=== PATIENT | male | born 1980 | race Caucasian/White ===

== ENCOUNTER 2018-07-21 14:20 | Inpatient (IN) ==
[~2018-07-21 14:20] MED LIST: THIAMINE 100 MG TABLET PO SCH
[2018-07-21] MEDS ORDERED: 0.9 % SODIUM CHLORIDE 1,000 ML IV ONE ×2 (14:31→17:24)
--- NOTE | 2018-07-21 14:42 | Emergency Department Note ---
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 He did have a liver biopsy that was suspicious. 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 I got that information from Valerie Allison. She is a nurse practitioner with Dr. Bryant. Around Thanksgiving time he developed some ascites and that prompted the evaluation. He came in last night and had quite a bit of ascites and Dr. Islas did a paracentesis of 1500 cc of fluid. He then returned a few hours later with abdominal pain and was found to have a abdominal wall muscle hematoma. This was in the same area that the paracentesis was done. Patient is having a lot of pain in that area now. As far as I can tell the patient did not get any albumin last night. His blood pressure was 64 systolic sitting but 113 supine. He returned to the emergency room this afternoon because of continuing pain in the area of the paracentesis was performed. - Related Data Home Medications Medication Instructions Recorded Confirmed Omeprazole [PriLOSEC] 40 mg PO ACB 04/23/18 05/21/18 Methylphenidate HCl [Concerta] 36 mg PO DAILY 05/21/18 05/21/18 clonazePAM [KlonoPIN] 0.5 mg PO TID 05/21/18 05/21/18 Previous Rx's Medication Instructions Recorded oxyCODONE/APAP [Percocet 5-325 mg] 1 tab PO Q4H PRN #21 tab 07/21/18 Allergies Allergy/AdvReac Type Severity Reaction Status Date / Time metoclopramide [From Reglan] AdvReac Mild Anxiety Verified 07/21/18 14:26 ondansetron [From Zofran] AdvReac Mild Anxiety Verified 07/21/18 14:26 Review of Systems All systems ED: reviewed and negative except as stated. Past Medical History - Past Medical History Medical history: Reports: kidney stones, liver disease (Cirrhosis with ascites due to alcohol) Surgical history ED: Reports: orthopedic, other (Foot), other (Liver biopsy) - Social History smoking status: Former smoker Alcohol use: Reports: Occasionally (He states he drank 3 drinks a day to 4 times a week but has quit since March) Drug use: Reports: unknown Physical Exam Limitations: no limitations General appearance: alert, cachectic Head: atraumatic, normocephalic Eye: Present: normal appearance ENT: normal exam Neck: Present: normal inspection Chest: Present: normal inspection Respiratory: Present: normal lung sounds bilaterally Cardiovascular: Present: regular rate, normal rhythm, normal heart sounds Abdominal: Present: soft, distention, tenderness. Absent: guarding, rebound, rigidity Neurological: Present: alert Psychiatric: Present: normal affect Skin: Present: warm, cool, dry Course Vital Signs Temperature 97.1 F 07/21/18 14:21 Pulse Rate 145 H 07/21/18 14:21 Respiratory Rate 24 H 07/21/18 14:21 Blood Pressure 64/40 07/21/18 14:21 Pulse Oximetry (%) 96 07/21/18 14:21 Temperature 97.1 F 07/21/18 14:21 Pulse Rate 131 H 07/21/18 18:16 Respiratory Rate 22 07/21/18 18:16 Blood Pressure 122/74 07/21/18 18:16 Pulse Oximetry (%) 98 07/21/18 18:16 Medical Decision Making - [facility] Narrative Medical decision making narrative: Chest x-ray is unremarkable, urine was negative and the ascitic fluid last night only had 100 cells in it. Patient was started on hydration and his blood pressure did come up to 113 if he was in the supine position. His lactic acid was 12 which is concerning. His pro time has also risen from 13-23 in the last 6 weeks. I discussed this case with Valerie Allison nurse practitioner for Dr. Bryant who follows the patient. She did call the unit of transplant dean of instruction who said that the patient is not a candidate for transplant. She also talked with Dr. Finn and Dr. Lindsay who are on board with following the patient here. Dr. Vargas was then contacted and will admit the patient to the hospital. We did do blood cultures and started the patient on Levaquin vancomycin and Zosyn. I also gave him some albumin since he did not get any last night. - Lab Data Lab results reviewed: Yes I reviewed the patient's lab results. Result diagrams: 07/21/18 14:31 07/21/18 14:31 Lab Results 07/21/18 07/21/18 07/21/18 Range/Units 14:31 14:31 14:31 WBC 11.6 H (4.5-11.0) K/mcL RBC 2.73 L (4.50-5.90) M/mcL Hgb 9.1 L (13.5-16.5) g/dL Hct 27.3 L (41.0-55.0) % MCV 99.9 (80.0-100.0) fL MCH 33.3 (26.0-34.0) pg MCHC 33.4 (31.0-36.0) g/dL RDW 15.4 H (11.5-14.5) % Plt Count 64 L (140-440) K/mcL MPV 8.2 (7.4-10.4) fL Gran % 85.7 H (38.0-78.0) % Lymph % (Auto) 9.4 L (15.5-49.0) % [place] % (Auto) 4.6 (1.0-12.0) % Eos % (Auto) 0.2 (0.0-7.0) % Baso % (Auto) 0.1 (0.0-2.0) % Gran # 9.9 H (1.8-8.0) K/mcL Lymph # (Auto) 1.1 L (1.5-4.8) K/mcL [place] # (Auto) 0.5 (0.1-0.9) K/mcL Eos # (Auto) 0 (0.0-0.7) K/mcL Baso # (Auto) 0 (0.0-0.3) K/mcL PT 23.3 H (11.9-14.5) sec INR 2.1 H (0.9-1.1) VBG Lactic Acid (0.5-2.0) mmol/L Sodium 131 L (133-145) mmol/L Potassium 4.0 (3.3-5.1) mmol/L Chloride 88 L (96-108) mmol/L Carbon Dioxide 21 L (22-30) mmol/L Anion Gap 22.0 H (8-16) BUN 10 (6-20) mg/dl Creatinine 1.0 (0.7-1.2) mg/dl GFR Calculation 95 Glucose 187 H (70-105) mg/dL Calcium 7.4 L (8.6-10.4) mg/dl Total Bilirubin 3.6 H (0.0-1.0) mg/dL AST 374 H (0-37) U/l ALT 45 H (0-40) U/l Alkaline Phosphatase 240 H (39-117) U/L Total Protein 6.1 (5.9-8.4) gm/dL Albumin 2.0 L (3.2-5.2) gm/dL Globulin 4.1 H (2.2-3.7) gm/dL Albumin/Globulin Ratio 0.5 L (1.0-2.3) Acetaminophen ug/mL Ethyl Alcohol (<0.010) gm/dl 07/21/18 07/21/18 07/21/18 Range/Units 14:36 14:36 14:36 WBC (4.5-11.0) K/mcL RBC (4.50-5.90) M/mcL Hgb (13.5-16.5) g/dL Hct (41.0-55.0) % MCV (80.0-100.0) fL MCH (26.0-34.0) pg MCHC (31.0-36.0) g/dL RDW (11.5-14.5) % Plt Count (140-440) K/mcL MPV (7.4-10.4) fL Gran % (38.0-78.0) % Lymph % (Auto) (15.5-49.0) % [place] % (Auto) (1.0-12.0) % Eos % (Auto) (0.0-7.0) % Baso % (Auto) (0.0-2.0) % Gran # (1.8-8.0) K/mcL Lymph # (Auto) (1.5-4.8) K/mcL [place] # (Auto) (0.1-0.9) K/mcL Eos # (Auto) (0.0-0.7) K/mcL Baso # (Auto) (0.0-0.3) K/mcL PT (11.9-14.5) sec INR (0.9-1.1) VBG Lactic Acid 12.1 H* (0.5-2.0) mmol/L Sodium (133-145) mmol/L Potassium (3.3-5.1) mmol/L Chloride (96-108) mmol/L Carbon Dioxide (22-30) mmol/L Anion Gap (8-16) BUN (6-20) mg/dl Creatinine (0.7-1.2) mg/dl GFR Calculation Glucose (70-105) mg/dL Calcium (8.6-10.4) mg/dl Total Bilirubin (0.0-1.0) mg/dL AST (0-37) U/l ALT (0-40) U/l Alkaline Phosphatase (39-117) U/L Total Protein (5.9-8.4) gm/dL Albumin (3.2-5.2) gm/dL Globulin (2.2-3.7) gm/dL Albumin/Globulin Ratio (1.0-2.3) Acetaminophen 8.7 ug/mL Ethyl Alcohol 0.078 H (<0.010) gm/dl - Radiology Data Radiology results reviewed: Yes I reviewed the patient's radiology results. Disposition Pt seen by ART EDUCATOR/PA only: No Clinical Impression: Liver failure Liver cirrhosis Qualifiers: Hepatic cirrhosis type: unspecified hepatic cirrhosis Ascites presence: with ascites Qualified Code(s): K74.60 - Unspecified cirrhosis of liver Abdominal wall hematoma Qualifiers: Encounter type: initial encounter Qualified Code(s): S30.1XXA - Contusion of abdominal wall, initial encounter Disposition: Xfer As Inpt ([facility]) Condition: Fair Referrals: Tamika Romano ARNP [Primary Care Provider] - Time of Disposition: 18:31
[2018-07-21] MEDS ORDERED: ALBUMIN HUMAN 12.5 GM/50 ML BAG IV ONE (14:53)
[2018-07-21 15:14] LABS: Basophils # (Auto) 0 K/mcL (0.0-0.3); Basophils % (Auto) 0.1 % (0.0-2.0); Eosinophils # (Auto) 0 K/mcL (0.0-0.7); Eosinophils % (Auto) 0.2 % (0.0-7.0); Granulocytes % (Auto) 85.7 % (38.0-78.0); Lymphocytes # (Auto) 1.1 K/mcL (1.5-4.8); Lymphocytes % (Auto) 9.4 % (15.5-49.0); Mean Cell Volume 99.9 fL (80.0-100.0); Mean Corpuscular HGB Conc 33.4 g/dL (31.0-36.0); Monocytes # (Auto) 0.5 K/mcL (0.1-0.9); Monocytes % (Auto) 4.6 % (1.0-12.0); Platelet Count 64 K/mcL (140-440); RBC 2.73 M/mcL (4.50-5.90); Red Cell Distribution Width 15.4 % (11.5-14.5)
[2018-07-21 15:33] LABS: ALT/SGPT 45 U/l (0-40); Albumin/Globulin Ratio 0.5 (1.0-2.3); Alkaline Phosphatase 240 U/L (39-117); Blood Urea Nitrogen 10 mg/dl (6-20)
[2018-07-21] MEDS ORDERED: LEVOFLOXACIN 750 MG/150 ML BAG IV ONE (15:37)
[2018-07-21] MEDS ORDERED: PIPERACILLIN SODIUM/TAZOBACTAM 3.375 GM in DEXTROSE 5% IN WATER 50 ML IV ONE (15:37)
[2018-07-21] MEDS ORDERED: VANCOMYCIN 1,000 MG in 0.9 % SODIUM CHLORIDE 250 ML IV SCH (15:45)
--- NOTE | 2018-07-21 15:54 | XRay Report ---
CLINICAL INFORMATION: Elevated lactic acid COMPARISON: None. FINDINGS: Cardiomediastinal silhouette and pulmonary vessels are normal for technique. Minor airspace in the right base likely atelectasis. No effusions IMPRESSION: Mild right basilar atelectasis Interpreted and Authenticated by: Jay Ott 07/21/18
[2018-07-21] MEDS: HYDROmorphone 2 MG/ML VIAL IV PRN ×5 (16:05→23:05)
[2018-07-21] MEDS ORDERED: clonazePAM 1 MG TABLET PO ONE (17:47)
--- NOTE | 2018-07-21 18:23 | Internal Medicine Consult Note ---
Medical - CN: HPI - Data of Consult Patient: known to practice within the last 3 years Consult date: 07/21/18 Primary Care Provider: Tamika Romano - Consult Narrative Reason for consult: Liver failure History of present illness: Mr. Benito is a 37 year old M whom I know well having recently seen him for alcoholic liver disease who presented to ER yesterday for ascites. He initially presented for outpatient consultation in March for evaluation of a mysterious acute hepatitis, adamantly denying any alcohol or recreational drug use. Extensive work up was undertaken, with liver biopsy ultimately revealing ADLER with grade 3-4 fibrosis. Given his repeated denials of alcohol use, he was prescribed an empiric trial of metronidazole as bacterial overgrowth has been associated in ADLER in bariatric surgery patients. We also recommended he discontinue suboxone as this has rarely been associated with drug induced liver injury. However, he had no improvement and was thus referred to [facility] for consideration of transplant. Phosphatidylethanol (PETH) was grossly abnormal at 432 (a level of 20 suggests alcohol consumption of greater than 4 beverages daily in the last 2 weeks); therefore, he is not a transplant candidate (this was confirmed again today with Dr. Oseguera at ). When confronted with this evidence, he continues to deny any alcohol use. His mother pulled me aside later and told me she has followed him to the liquor store and found liquor bottles in his garbage, but he also denies alcohol use when she confronted him. He tells me he is agitated because he ran out of his clonazepam. He admits to using tylenol three times weekly. Paracentesis was performed yesterday and no evidence of SBP was seen. He developed an abdominal wall hematoma and returns today for pain control. His tests of synthetic liver function continue to decline and the decision was made to admit the patient, co-managed with hospitalist Dr. Vargas with on-call gastroenterology providing endoscopy support as needed. CC: - Constitutional Constitutional: Present: daytime sleepiness, fatigue, lethargy, malaise, weight gain. Absent: fever(s) - Respiratory Respiratory: Present: dyspnea - Gastrointestinal Gastrointestinal: Present: abdominal pain, bloating Medical - CN: PMH Medical history: chronic back pain treated with suboxone and clonazepam. ADHD. Hypertension. Surgical history: Left foot surgery 2012 Pertinent family history: Father has heart disease. Social history: from . Has 2 daughters. 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 Smoking status: Never smoker Medical - CN: Meds Home Medications Medication Instructions Recorded Confirmed Type Omeprazole [PriLOSEC] 40 mg PO ACB 04/23/18 05/21/18 History Methylphenidate HCl [Concerta] 36 mg PO DAILY 05/21/18 05/21/18 History clonazePAM [KlonoPIN] 0.5 mg PO TID 05/21/18 05/21/18 History oxyCODONE/APAP [Percocet 5-325 mg] 1 tab PO Q4H PRN #21 tab 07/21/18 Rx Allergies Allergy/AdvReac Type Severity Reaction Status Date / Time metoclopramide [From Reglan] AdvReac Mild Anxiety Verified 07/21/18 14:26 ondansetron [From Zofran] AdvReac Mild Anxiety Verified 07/21/18 14:26 Medical - CN: Exam - Constitutional Vitals: Temp Pulse Resp BP Pulse Ox 97.1 F 131 H 22 122/74 98 07/21/18 14:21 07/21/18 18:16 07/21/18 18:16 07/21/18 18:16 07/21/18 18:16 General appearance: average body habitus, mild distress - Head Head exam: Present: atraumatic, normal inspection, normocephalic - Neck Neck exam: Present: normal inspection. Absent: lymphadenopathy - Respiratory Respiratory exam: Present: normal respiratory exam, CTAB - Cardiovascular Cardiovascular exam: Present: tachycardia. Absent: gallop, rubs, systolic murmur - GI/Abdominal GI/Abdominal exam: Present: normal bowel sounds Additional comments: ascites, unable to palpate liver due to pain from abdominal wall hematoma, but measured 25cm on CT today. Dressing from paracentesis dry and intact. - Extremities Exam Extremities exam: Present: pedal edema - Neurological Exam Neurological exam: Present: alert Additional comments: No asterixis - Psychiatric Psychiatric exam: Present: anxious - Skin Skin exam: Present: dry, pallor, warm Medical - CN: Result - Labs CBC & Chem 7: 07/21/18 14:31 07/21/18 14:31 Labs: Short CBC 07/21/18 Range/Units 14:31 WBC 11.6 H (4.5-11.0) K/mcL Hgb 9.1 L (13.5-16.5) g/dL Hct 27.3 L (41.0-55.0) % Plt Count 64 L (140-440) K/mcL BMP 07/21/18 14:31 Sodium 131 L Potassium 4.0 Chloride 88 L Carbon Dioxide 21 L BUN 10 Creatinine 1.0 Glucose 187 H Calcium 7.4 L Liver Function 07/21/18 Range/Units 14:31 Total Bilirubin 3.6 H (0.0-1.0) mg/dL AST 374 H (0-37) U/l ALT 45 H (0-40) U/l Alkaline Phosphatase 240 H (39-117) U/L Albumin 2.0 L (3.2-5.2) gm/dL Medical - CN: A/P (1) Liver failure Status: Acute Assessment and plan: Liver failure secondary to alcohol use resulting in cirrhosis with portal hypertension (varices on CT), ascites, coagulopathy. MELD is 24. Unfortunately, Mr. Benito's failure to disclose his alcohol use has excluded him from transplant criteria. At his sister's insistence, we have repeated a blood alcohol level today. We will also check an acetaminophen level. New hepatic lesions seen on CT. Suspect these are regenerating nodules. Hep atocellular carcinoma less likely, but will check AFP. These should NOT be biopsied in light of patient's coagulopathy. Will check an ammonia as I suspect he has encephalopathy. We will attempt to get him started on Xifaxan. This is not on hospital formulary, but perhaps it could be filled as an outpatient and family could bring meds from home. CIWA protocol will be initiated. Maddrey's score is 56, suggesting a poor prognosis for alcoholic hepatitis. We will start him on prednisone 40mg daily. Will give 2 units of FFP for coagulopathy as his INR is 2, PT has risen to 23 and he has developed abdominal wall hematoma. Will give albumin IV for ascites in the hopes of minimizing need for p aracentesis and start spironolactone and furosemide. Will add an ascites albumin to the fluid drawn yesterday to see if needs SBP prophylaxis while in hospital. His markedly elevated LDH and leukocytosis are concerning, but peripheral leukocytosis could be due to alcoholic hepatitis. We had a caterina discussion that his prognosis is poor with a 90 day mortality of 50%. We will continue to follow him in hospital. This was a complex consultation with greater than 1 hour spent coordinating care, including consulting with outside providers (Dr. Bella Oseguera- transplant hepatology, Dr [facility] gastro, Dr [facility] gastro).
[2018-07-21] MEDS ORDERED: 0.9 % SODIUM CHLORIDE 250 ML IV SCH ×2 (18:30→19:17)
[2018-07-21] MEDS ORDERED: PHYTONADIONE 2.5 MG in 0.9 % SODIUM CHLORIDE 50 ML IV ONE ×2 (18:46→19:17)
[2018-07-21] MEDS ORDERED: ALBUMIN HUMAN 25 GM/100 ML BAG IV ONE ×2 (19:00→19:17)
[2018-07-21] MEDS ORDERED: SPIRONOLACTONE 25 MG TABLET PO SCH (19:01)
[2018-07-21] MEDS ORDERED: FUROSEMIDE 40 MG TABLET PO SCH (19:01)
[2018-07-21] MEDS ORDERED: predniSONE 20 MG TABLET PO SCH (19:02)
--- NOTE | 2018-07-21 19:20 | Internal Med History&Physical ---
Medical - H&P: [facility] Patient information: Note initiated : 07/21/18 at 7:17 pm Service Date, if different from initiated Date: [] Patient: Abrahan Benito a 37 y/o M admitted on for Weakness. Chief Complaint: [] History of present illness: Mr. Benito is a 37 year old M who was diagnosed with acute hepatitis last fall. Outpatient workup included evaluation by [facility] transplant team. Patient had denied any alcohol use. However, further workup and biopsies that you [facility] revealed it to be alcohol related. When asking him about alcohol he says he has not had any since March, but when I stated there is alcohol showing up in his blood and then again asked in 1 of last time he had a drinks as well may be couple days ago. He only admits to drinking 3 times a week 2-4 mixed alcoholic drinks with rum. Denies any drug use. He came to the ER late last night because of abdominal pain found of a lot of ascites and was given a paracentesis which relieved the achy abdominal pain. The patient presented back to the ER with a sharp pain over the procedure site. He was found to have a large hematoma and was given some pain medications and discharge. His mom brought him back today because he was shaky sweaty weak. Per his mom he is progressed to look more pale of the past few months and more yellow. He has some chills from time to time with some nausea. Had a soft stool today no diarrhea. Denies chest pain, does have some shortness of breath because of abdominal pressure but otherwise respiratory status is well. His mentation is clear. Review of Systems: Pertinent positives as above. Denies fever/chills/vomiting/chest or abdominal pain/cough/dyspnea/diarrhea. Remaining 10 point review of systems reviewed negative Medical - H&P: PMH Medical history: Past medical history: Alcoholic cirrhosis Anxiety GERD Past surgical history includes: Left foot surgery for broken foot Family history: Mother had hypertension Father had arrhythmia Social history: Patient denies alcohol but when pressure does admit to drinking alcohol at least 3-4 times a week difficult to ascertain how much he drinks would admit to 3-4 mixed drinks. Denies drug use. Medical - H&P: Meds Home Medications Medication Instructions Recorded Confirmed Type Omeprazole [PriLOSEC] 40 mg PO ACB 04/23/18 05/21/18 History Methylphenidate HCl [Concerta] 36 mg PO DAILY 05/21/18 05/21/18 History clonazePAM [KlonoPIN] 0.5 mg PO TID 05/21/18 05/21/18 History oxyCODONE/APAP [Percocet 5-325 mg] 1 tab PO Q4H PRN #21 tab 07/21/18 Rx Allergies Allergy/AdvReac Type Severity Reaction Status Date / Time metoclopramide [From Reglan] AdvReac Mild Anxiety Verified 07/21/18 14:26 ondansetron [From Zofran] AdvReac Mild Anxiety Verified 07/21/18 14:26 Medical - H&P: Exam - Constitutional Vitals: Temp Pulse Resp BP Pulse Ox 97.1 F 130 H 22 104/59 98 07/21/18 14:21 07/21/18 19:07 07/21/18 19:07 07/21/18 19:01 07/21/18 19:07 General appearance: average body habitus, mild distress Exam: General: Alert, Awake, mild distress from abdominal discomfort Eyes/N/T: EOMI, PEERL, scleral icterus Head/Neck: neck supple, normocephalic atraumatic CV: RRR, No murmurs, normal s1/s2 Pulm: Clear b/l, no wheezing/rhonchi/rales Abd: Distended, tender to palpation throughout more so over the procedural site, +BS x4 Ext: no clubbing/cyanosis, 2+ bilateral lower extremity edema Neuro: Alert, no focal deficits, moves all extremities, CN 2-12 grossly intact, symmetrical strength b/l upper/lower, sensations intact b/l upper/lower Skin: warm/dry/jaundice Medical - H&P: Reslt - Labs CBC & Chem 7: 07/21/18 14:31 07/21/18 14:31 Labs: Short CBC 07/21/18 Range/Units 14:31 WBC 11.6 H (4.5-11.0) K/mcL Hgb 9.1 L (13.5-16.5) g/dL Hct 27.3 L (41.0-55.0) % Plt Count 64 L (140-440) K/mcL BMP 07/21/18 14:31 Sodium 131 L Potassium 4.0 Chloride 88 L Carbon Dioxide 21 L BUN 10 Creatinine 1.0 Glucose 187 H Calcium 7.4 L Liver Function 07/21/18 Range/Units 14:31 Total Bilirubin 3.6 H (0.0-1.0) mg/dL AST 374 H (0-37) U/l ALT 45 H (0-40) U/l Alkaline Phosphatase 240 H (39-117) U/L Albumin 2.0 L (3.2-5.2) gm/dL Medical - H&P: A/P - Narrative A/P Narrative: A: *Acute on chronic Liver failure: -MELDS-Na=25 & Child-[place]=C -Poor prognosis, High mortality rate -Not a transplant candidate secondary to alcohol use. Valerie steven talked to you transplant team *Etoh Hepatitis: *Cirrhosis, ETOH: with sequelae of low albumin/platelets/sodium, elevated bili/lactate *etoh abuse: *Hypotension after paracentesis of 1500cc early on 07/21 *Hematoma, large: 2/2 paracentesis *coagulopathy: 2/2 cirrhosis *Anemia, acute blood loss: 2/2 above *Lactic acidosis: 2/2 hypotension and Liver failure *Hyponatremia: 2/2 liver failure *Guarded Prognosis: P: -diuretics/steroids per GI -Valerie Allison following -albumin -monitor H&H, T&S -f/u hematoma u/s tomorrow - -CIWA -vit k -UDS pending - -ppx: SCD full code time spent >1 hour on this complicated patient.
[2018-07-21] MEDS ORDERED: HYDROmorphone 2 MG/ML VIAL IV ONE (19:24)
[2018-07-21] MEDS ORDERED: PHYTONADIONE 10 MG/ML AMPUL PO ONE (19:44)
[2018-07-21 20:08] LABS: Amphetamine Screen,Urine NONE DETECTED (NONDETECTED); Benzodiazepines Screen,Urine NONE DETECTED (NONDETECTED); Cocaine Screen,Urine NONE DETECTED (NONDETECTED); Opiate Screen,Urine SUSPECT POSITIVE (NONDETECTED); Oxycodone, Urine Screen SUSPECT POSITIVE (NONDETECTED)
[2018-07-21] MEDS ORDERED: METOPROLOL TARTRATE 25 MG TABLET PO ONE (20:21)
[2018-07-21] MEDS ORDERED: METOPROLOL TARTRATE 25 MG TABLET ONE (20:33)
[2018-07-21] MEDS ORDERED: chlordiazePOXIDE 25 MG CAPSULE PO PRN (20:34)
[2018-07-21] MEDS ORDERED: clonazePAM 1 MG TABLET PO SCH (21:00)
[2018-07-21] MEDS ORDERED: Buprenorphine Hcl 2 MG SL SCH (21:00)
[2018-07-21] MEDS ORDERED: FAMOTIDINE 20 MG TABLET PO SCH (21:00)
[2018-07-21] MEDS: 0.9 % SODIUM CHLORIDE 10 ML SYRINGE IV SCH ×2 (21:27→21:28)
[2018-07-21 21:36] LABS: Band Neutrophils % 13 % (0-10); Lymphocytes % 3 % (15-49); Monocytes % (Manual) 5 % (1-12); Platelet Estimate DECREASED (NORMAL); RBC Morphology NORMAL (NORMAL); Segmented Neutrophils % 79 % (38-78)
[2018-07-21] MEDS: PIPERACILLIN SODIUM/TAZOBACTAM 3.375 GM in DEXTROSE 5% IN WATER 50 ML IV SCH (23:24)
[2018-07-22] MEDS ORDERED: FUROSEMIDE 20 MG/2 ML VIAL IV ONE (00:30)
[2018-07-22] MEDS: LORazepam 2 MG/ML VIAL IV PRN ×5 (00:32→07:21)
[2018-07-22] MEDS ORDERED: FUROSEMIDE 40 MG/4 ML VIAL IV ONE ×2 (00:33)
[2018-07-22] MEDS ORDERED: ALBUMIN HUMAN 12.5 GM/50 ML BAG IV ONE (00:33)
[2018-07-22] MEDS ORDERED: SODIUM BICARBONATE ADULT 50 MEQ/50 ML SYRINGE IV ONE ×2 (00:33→00:37)
[2018-07-22] MEDS ORDERED: SODIUM BICARBONATE 50 MEQ/50 ML VIAL ONE ×2 (00:35→00:38)
[2018-07-22] MEDS ORDERED: ALBUMIN HUMAN 50 ML IV ONE (00:37)
[2018-07-22] MEDS: HYDROmorphone 2 MG/ML VIAL IV PRN ×4 (00:55→08:35)
[2018-07-22] MEDS: PIPERACILLIN SODIUM/TAZOBACTAM 3.375 GM in DEXTROSE 5% IN WATER 50 ML IV SCH (04:01)
[2018-07-22] MEDS ORDERED: NOREPINEPHRINE BITARTRATE 4 MG/4 ML VIAL IV ONE (05:12)
[2018-07-22] MEDS ORDERED: HALOPERIDOL LACTATE 5 MG/ML VIAL IV PRN (05:22)
[2018-07-22] MEDS ORDERED: NOREPINEPHRINE BITARTRATE 16 MG in 0.9 % SODIUM CHLORIDE 234 ML IV SCH (05:32)
[2018-07-22] MEDS: 0.9 % SODIUM CHLORIDE 10 ML SYRINGE IV SCH ×3 (05:38→08:38)
[2018-07-22] MEDS ORDERED: 0.9 % SODIUM CHLORIDE 250 ML IV SCH ×4 (05:45→08:00)
[2018-07-22] MEDS ORDERED: ALBUMIN HUMAN 12.5 GM/50 ML BAG IV SCH ×2 (06:00)
--- NOTE | 2018-07-22 06:11 | XRay Report ---
CLINICAL INFORMATION: Worsening SOB COMPARISON: None. FINDINGS: The heart size, mediastinum and pulmonary vessels are unremarkable. Minor right basilar atelectasis is stable. There are no effusions. The bones and soft tissues are within normal limits. IMPRESSION: Minor right basilar atelectasis - unchanged. Suboptimal inspiratory result - suspect patient is unable to lower diaphragms due to the presence of ascites and ileus. It is likely contributory to dyspnea Interpreted and Authenticated by: Jay Ott 07/22/18
[2018-07-22 06:12] LABS: Mean Cell Volume 103.9 fL (80.0-100.0); Mean Corpuscular HGB Conc 33.2 g/dL (31.0-36.0); Platelet Count 70 K/mcL (140-440); RBC 1.46 M/mcL (4.50-5.90); Red Cell Distribution Width 15.8 % (11.5-14.5)
--- NOTE | 2018-07-22 06:15 | Ultrasound Report ---
CLINICAL INFORMATION: Hematoma in the right lateral abdominal wall - follow-up COMPARISON: Abdomen and pelvic CT 07/21/2018 0609 hours FINDINGS: A large hematoma dissecting between the internal oblique and transversus abdominis in the right lateral abdominal wall spans 17 x 16 cm. No evidence of active hemorrhage IMPRESSION: 17 cm acute hematoma in the right lateral abdominal wall musculature. No significant change since CT earlier today. No evidence of active hemorrhage on color Doppler Interpreted and Authenticated by: Jay Ott 07/22/18
[2018-07-22 06:33] LABS: ALT/SGPT 84 U/l (0-40); Albumin 2.4 gm/dL (3.2-5.2); Albumin/Globulin Ratio 0.9 (1.0-2.3); Alkaline Phosphatase 155 U/L (39-117); Bilirubin,Direct 2.7 mg/dL (0.0-0.3); Blood Urea Nitrogen 10 mg/dl (6-20); Gamma Glutamyl Transpeptidase 434 U/L (8-61); Uric Acid 6.5 mg/dL (2.5-8.0)
--- NOTE | 2018-07-22 06:47 | Internal Med Progress Note ---
Medical - PN: Subj Patient information: Note initiated : 07/22/18 at 6:43 am Service Date, if different from initiated Date: [] Patient: Abrahan Benito a 37 y/o M admitted on 07/21/18 for Weakness. Chief Complaint: [] Interval history: Mr. Benito is a 37 year old M who was diagnosed with acute hepatitis last fall. Outpatient workup included evaluation by [facility] transplant team. Patient had denied any alcohol use. However, further workup and biopsies that you [facility] revealed it to be alcohol related. When asking him about alcohol he says he has not had any since March, but when I stated there is alcohol showing up in his blood and then again asked in 1 of last time he had a drinks as well may be couple days ago. He only admits to drinking 3 times a week 2-4 mixed alcoholic drinks with rum. Denies any drug use. He came to the ER late last night because of abdominal pain found of a lot of ascites and was given a paracentesis which relieved the achy abdominal pain. The patient presented back to the ER with a sharp pain over the procedure site. He was found to have a large hematoma and was given some pain medications and discharge. His mom brought him back today because he was shaky sweaty weak. Per his mom he is progressed to look more pale of the past few months and more yellow. He has some chills from time to time with some nausea. Had a soft stool today no diarrhea. Denies chest pain, does have some shortness of breath because of abdominal pressure but otherwise respiratory status is well. His mentation is clear. 07/22 worsening agitation and elevated CIWA score last night, improved with IV Ativan. Patient was noncompliant with some of the orders per nursing staff. Blood pressure dropping this morning's start on low-dose Levophed. Tachypneic last night, no change in chest x-ray, started on BiPAP with improvement. Respiratory compensation for metabolic acidosis. INR worsening despite 2 FFP and vitamin K yesterday. Per the patient's desire, his mother and father would be the ones to does make medical decisions if he was unable. Discussed case with Dr. Lindsay regarding any other intervention or any benefit to transferring. He stated at this point in his end-stage liver disease unresponsive to initial therapy that his prognosis extremely poor no benefit to transferring, hospice consult more than appropriate. Patient is on BiPAP at this time and difficult to obtain answers to questions was able to tell me that his mother and father would make medical decisions for him. Other review of systems unable to understand his response. - Constitutional Vitals: Vital Signs Temp Pulse Resp BP Pulse Ox 95.8 F L 92 H 30 H 119/61 100 07/22/18 06:11 07/22/18 06:14 07/22/18 06:14 07/22/18 06:11 07/22/18 06:14 Period Temp Pulse Resp BP Sys/Shelley Pulse Ox Last 24 Hr 95.8 F-98.2 F 84-145 15-35 64-141/37-103 94-100 Intake and Output 07/21/18 07/22/18 07/22/18 21:59 05:59 13:59 Intake Total 3021 200 Output Total 165 Balance 3021 35 Weight 100.289 kg Intake & Output: Intake & Output 07/21/18 07/22/18 07/22/18 21:59 05:59 13:59 Intake Total 3021 200 Output Total 165 Balance 3021 35 Weight 100.289 kg Intake: IV 2600 200 Sodium Chloride 0.9% 1,000 ml @ 2000 Wide Open IV [facility] Rx#: [id number] Zosyn 3.375 gm In Dextrose 5% 50 100 in Water 50 ml @ 100 mls/hr IV Q6H [facility] Rx#:[id number] Vancomycin 1,000 mg In Sodium 250 Chloride 0.9% 250 ml @ 250 mls/ hr IV PREOP [facility] Rx#:[id number] Blood Product 421 Output: Urine Catheter Amount 100 Void Amount 65 Other: Urine Appearance Clear Uretheral ([place]) Clear Urine Color Tea Colored Uretheral ([place]) Tea Colored Exam: General: Awake but drowsy, mild distress Eyes/N/T: EOMI, scleral icterus Head/Neck: neck supple, CV: RRR, No murmurs, Pulm: Clear b/l, no wheezing/rhonchi/rales Abd: Distended, tender to palpation throughout more so over the procedural site, +BS Ext: no clubbing/cyanosis, 2+ bilateral lower extremity edema Neuro: no focal deficits but cognition appears slower today, moves all extremities, Skin: warm/dry/jaundice Medical - PN: Obj Da - Labs CBC & Chem 7: 07/22/18 04:00 07/22/18 04:00 Labs: Abnormal Lab Results 07/22/18 07/22/18 07/22/18 04:00 04:00 04:00 WBC RBC 1.46 L Hgb 5.1 L* Hct 15.2 L* MCV 103.9 H MCH 34.5 H RDW 15.8 H Plt Count 70 L Gran % Lymph % (Auto) Gran # Lymph # (Auto) Seg Neutrophils % Band Neutrophils % Lymphocytes % Platelet Estimate PT INR VBG Lactic Acid 20.6 H* Sodium Potassium 5.7 H Chloride 87 L Carbon Dioxide 14 L Anion Gap 34.0 H Creatinine 1.6 H Glucose Calcium 7.5 L Phosphorus 7.5 H* Magnesium 1.5 L Total Bilirubin 4.5 H Direct Bilirubin 2.7 H GGT 434 H AST 667 H ALT 84 H Alkaline Phosphatase 155 H Lactate Dehydrogenase 627 H Total Protein 5.2 L Albumin 2.4 L Globulin Albumin/Globulin Ratio 0.9 L Urine Opiates Screen Ur Oxycodone Screen Ethyl Alcohol 07/21/18 07/21/18 07/21/18 20:16 19:17 18:48 WBC RBC Hgb Hct MCV MCH RDW Plt Count Gran % Lymph % (Auto) Gran # Lymph # (Auto) Seg Neutrophils % 79 H Band Neutrophils % 13 H Lymphocytes % 3 L Platelet Estimate Decreased A PT INR VBG Lactic Acid 13.6 H* Sodium Potassium Chloride Carbon Dioxide Anion Gap Creatinine Glucose Calcium Phosphorus Magnesium Total Bilirubin Direct Bilirubin GGT AST ALT Alkaline Phosphatase Lactate Dehydrogenase Total Protein Albumin Globulin Albumin/Globulin Ratio Urine Opiates Screen Suspect positive A Ur Oxycodone Screen Suspect positive A Ethyl Alcohol 07/21/18 07/21/18 07/21/18 14:36 14:36 14:31 WBC RBC Hgb Hct MCV MCH RDW Plt Count Gran % Lymph % (Auto) Gran # Lymph # (Auto) Seg Neutrophils % Band Neutrophils % Lymphocytes % Platelet Estimate PT INR VBG Lactic Acid 12.1 H* Sodium 131 L Potassium Chloride 88 L Carbon Dioxide 21 L Anion Gap 22.0 H Creatinine Glucose 187 H Calcium 7.4 L Phosphorus Magnesium Total Bilirubin 3.6 H Direct Bilirubin GGT AST 374 H ALT 45 H Alkaline Phosphatase 240 H Lactate Dehydrogenase Total Protein Albumin 2.0 L Globulin 4.1 H Albumin/Globulin Ratio 0.5 L Urine Opiates Screen Ur Oxycodone Screen Ethyl Alcohol 0.078 H 07/21/18 07/21/18 14:31 14:31 WBC 11.6 H RBC 2.73 L Hgb 9.1 L Hct 27.3 L MCV MCH RDW 15.4 H Plt Count 64 L Gran % 85.7 H Lymph % (Auto) 9.4 L Gran # 9.9 H Lymph # (Auto) 1.1 L Seg Neutrophils % Band Neutrophils % Lymphocytes % Platelet Estimate PT 23.3 H INR 2.1 H VBG Lactic Acid Sodium Potassium Chloride Carbon Dioxide Anion Gap Creatinine Glucose Calcium Phosphorus Magnesium Total Bilirubin Direct Bilirubin GGT AST ALT Alkaline Phosphatase Lactate Dehydrogenase Total Protein Albumin Globulin Albumin/Globulin Ratio Urine Opiates Screen Ur Oxycodone Screen Ethyl Alcohol Meds: Medications Chlordiazepoxide HCl (Librium) 50 mg PO Q8HP PRN PRN Reason: Alcohol Withdrawal Last Admin: 07/22/18 00:32 Dose: 50 mg Documented by: Clonazepam (Klonopin) 1 mg PO BID [facility] Last Admin: 07/21/18 21:26 Dose: 1 mg Documented by: Famotidine (Pepcid) 20 mg PO BID [facility] Last Admin: 07/21/18 21:26 Dose: 20 mg Documented by: Folic Acid (Folic Acid) 1 mg PO DAILY [facility] Furosemide (Lasix) 40 mg PO DAILY [facility] Haloperidol Lactate (Haldol) 1 mg IV Q2HP PRN PRN Reason: Alcohol Withdrawal Hydromorphone HCl (Dilaudid) 0.5 mg IV Q2HP PRN PRN Reason: PAIN LEVEL > 6 Last Admin: 07/22/18 02:25 Dose: 0.5 mg Documented by: Albumin Human (Buminate) 12.5 gm in 50 mls @ 100 mls/hr IV TID [facility] Stop: 07/23/18 15:29 Last Infusion: 07/22/18 05:51 Dose: Infused Documented by: Sodium Chloride (Sodium Chloride 0.9%) 250 mls @ 20 mls/hr IV .[id number] [facility] Stop: 07/22/18 07:46 Last Admin: 07/21/18 23:36 Dose: 20 mls/hr Documented by: Piperacillin Sod/Tazobactam (Sod 3.375 gm/ Dextrose) 50 mls @ 100 mls/hr IV Q6H [facility]; Protocol Last Infusion: 07/22/18 05:39 Dose: Infused Documented by: Norepinephrine Bitartrate 16 (mg/ Sodium Chloride) 250 mls @ 9.38 mls/hr IV Q24H [facility]; Protocol Last Admin: 07/22/18 05:35 Dose: 10 mcg/min, 9.38 mls/hr Documented by: Sodium Chloride (Sodium Chloride 0.9%) 250 mls @ 20 mls/hr IV .[id number] [facility] Last Admin: 07/22/18 05:38 Dose: 20 mls/hr Documented by: Sodium Chloride (Sodium Chloride 0.9%) 250 mls @ 20 mls/hr IV .[id number] [facility] Stop: 07/22/18 19:14 Iron Carb/Multivit/[place]/Folic Acid (Multivitamin W/Minerals) 1 tab PO DAILY [facility] Lidocaine (Lidoderm) 1 patch TOPICAL DAILY@1000 [facility] Lorazepam (Ativan) 0 mg IV Q4HP PRN; Protocol PRN Reason: Alcohol Withdrawal Last Admin: 07/22/18 03:25 Dose: 4 mg Documented by: Midodrine (Midodrine Hcl) 5 mg PO TID@0800,1200,1700 [facility] Buprenorphine Hcl 75 (Mcg) 1 dose SL BID [facility] Last Admin: 07/21/18 21:27 Dose: Not Given Documented by: Prednisone (Prednisone) 40 mg PO [facility] Sodium Chloride (Saline Flush) 10 ml IV Q8 [facility] Last Admin: 07/22/18 05:38 Dose: 10 ml Documented by: Sodium Chloride (Saline Flush) 10 ml IV Q8 [facility] Last Admin: 07/22/18 05:38 Dose: 10 ml Documented by: Spironolactone (Aldactone) 100 mg PO DAILY [facility] Thiamine HCl (Vitamin B1) 100 mg PO QDAY [facility] Last Admin: 07/21/18 21:28 Dose: Not Given Documented by: Medical - PN: A/P - Time Spent With Patient Total time spent is greater than 50% in coordination of care (as documented) at patient's floor/unit and/or counseling patient: - Narrative A/P Narrative: A: *Acute on chronic Liver failure: -MELDS-Na=25 & Child-[place]=C -Poor prognosis, High mortality rate -Not a transplant candidate secondary to alcohol use. Valerie Allison already talked to you transplant team *Etoh Hepatitis: *Cirrhosis, ETOH: with sequelae of low albumin/platelets/sodium, elevated bili/lactate *etoh abuse with W/D: *Hypotension after paracentesis of 1500cc early on 07/21: -responded initially to IVF but dropped again overnight and started on vasopressors *Hematoma, large: 2/2 paracentesis *Multiorgan dysfunction: *coagulopathy: 2/2 cirrhosis -s/p FFP and santos K w/o improvement *Anemia, acute blood loss: 2/2 above *Lactic acidosis: 2/2 hypotension and Liver failure *Hyponatremia: 2/2 liver failure *Guarded Prognosis: -[place] II score on admit 19/25% in ED -declining since admission P: -vasopressor support -diuretics/steroids per GI -Discussed case with Dr. Lindsay who states no benefit in transferring, patient had end-stage liver disease and extremely poor prognosis especially since worsening coagulopathy despite an FFP/vit k indicating severity of hepatic impairment -Valerie Allison following -nephrology consult -albumin -Transfuse 2 PRBC -CIWA -emiric abx -family discussion -ppx: SCD full code Medical - PN: Qual - VTE Deep Vein Thrombosis/Pulmonary Embolism Present on Admission: No
[2018-07-22 07:15] LABS: Band Neutrophils % 3 % (0-10); Lymphocytes % 4 % (15-49); Macrocytosis 1+ (NONE SEEN); Monocytes % (Manual) 1 % (1-12); Platelet Estimate DECREASED (NORMAL); RBC Morphology ABNORM (NORMAL); Segmented Neutrophils % 92 % (38-78)
[2018-07-22] MEDS ORDERED: VASOPRESSIN 20 UNIT in DEXTROSE 5% IN WATER 99 ML IV SCH (08:00)
[2018-07-22] MEDS ORDERED: MIDODRINE 5 MG TABLET PO SCH (08:00)
[2018-07-22] MEDS ORDERED: predniSONE 20 MG TABLET PO SCH (08:00)
--- NOTE | 2018-07-22 08:31 | Internal Med Progress Note ---
Medical - PN: Subj Patient information: Note initiated : 07/22/18 at 8:29 am Service Date, if different from initiated Date: [] Patient: Abrahan Benito 37 y/o M admitted on 07/21/18 for Weakness. Chief Complaint: [liver failure] Interval history: Mr Benito is a 37 year old white male with alcoholic liver disease who is hospitalized with hepatic failure. His condition has declined over night with INR rising despite FFP and vitamin K. His hgb has dropped to 5.1. Urine output has ceased and creatinine rising. Has required biPap overnight. Sisters Stefany and Valerie at bedside. - Constitutional Vitals: Vital Signs Temp Pulse Resp BP Pulse Ox 95.8 F L 92 H 30 H 119/61 100 07/22/18 06:11 07/22/18 06:14 07/22/18 06:14 07/22/18 06:11 07/22/18 06:14 Period Temp Pulse Resp BP Sys/Shelley Pulse Ox Last 24 Hr 95.8 F-98.2 F 84-145 15-35 64-141/37-103 94-100 Intake and Output 07/21/18 07/22/18 07/22/18 21:59 05:59 13:59 Intake Total 3021 200 30 Output Total 165 Balance 3021 35 30 Weight 221 lb 1.6 oz Intake & Output: Intake & Output 07/21/18 07/22/18 07/22/18 21:59 05:59 13:59 Intake Total 3021 200 30 Output Total 165 Balance 3021 35 30 Weight 221 lb 1.6 oz Intake: IV 2600 200 30 Sodium Chloride 0.9% 1,000 ml @ 2000 Wide Open IV [facility] Rx#: [id number] Levophed 16 mg In Sodium 30 Chloride 0.9% 234 ml @ 10 MCG/ MIN 9.38 mls/hr IV Q24H [facility] Rx# :[id number] Zosyn 3.375 gm In Dextrose 5% 50 100 in Water 50 ml @ 100 mls/hr IV Q6H [facility] Rx#:[id number] Vancomycin 1,000 mg In Sodium 250 Chloride 0.9% 250 ml @ 250 mls/ hr IV PREOP [facility] Rx#:[id number] Blood Product 421 Output: Urine Catheter Amount 100 Void Amount 65 Other: Urine Appearance Clear Uretheral ([place]) Clear Urine Color Tea Colored Uretheral ([place]) Tea Colored Exam: Agitated, bipap on - Respiratory Additional comments: bipap on - GI/Abdominal Additional comments: ascites, rounded - Neurological Exam Neurological exam: Present: altered - Psychiatric Psychiatric exam: Present: agitated - Skin Skin exam: Present: pallor, warm Medical - PN: Obj Da - Labs CBC & Chem 7: 07/22/18 04:00 07/22/18 04:00 Labs: Abnormal Lab Results 07/22/18 07/22/18 07/22/18 04:00 04:00 04:00 WBC RBC 1.46 L Hgb 5.1 L* Hct 15.2 L* MCV 103.9 H MCH 34.5 H RDW 15.8 H Plt Count 70 L Gran % Lymph % (Auto) Gran # Lymph # (Auto) Seg Neutrophils % 92 H Band Neutrophils % Lymphocytes % 4 L Nucleated RBCs 1 H Platelet Estimate Decreased A RBC Morphology Abnorm A Macrocytosis 1+ A PT INR VBG Lactic Acid 20.6 H* Sodium Potassium 5.7 H Chloride 87 L Carbon Dioxide 14 L Anion Gap 34.0 H Creatinine 1.6 H Glucose Calcium 7.5 L Phosphorus 7.5 H* Magnesium 1.5 L Total Bilirubin 4.5 H Direct Bilirubin 2.7 H GGT 434 H AST 667 H ALT 84 H Alkaline Phosphatase 155 H Lactate Dehydrogenase 627 H Total Protein 5.2 L Albumin 2.4 L Globulin Albumin/Globulin Ratio 0.9 L Urine Opiates Screen Ur Oxycodone Screen Ethyl Alcohol 07/22/18 07/21/18 07/21/18 04:00 20:16 19:17 WBC RBC Hgb Hct MCV MCH RDW Plt Count Gran % Lymph % (Auto) Gran # Lymph # (Auto) Seg Neutrophils % 79 H Band Neutrophils % 13 H Lymphocytes % 3 L Nucleated RBCs Platelet Estimate Decreased A RBC Morphology Macrocytosis PT 31.3 H INR 3.1 H VBG Lactic Acid Sodium Potassium Chloride Carbon Dioxide Anion Gap Creatinine Glucose Calcium Phosphorus Magnesium Total Bilirubin Direct Bilirubin GGT AST ALT Alkaline Phosphatase Lactate Dehydrogenase Total Protein Albumin Globulin Albumin/Globulin Ratio Urine Opiates Screen Suspect positive A Ur Oxycodone Screen Suspect positive A Ethyl Alcohol 07/21/18 07/21/18 07/21/18 18:48 14:36 14:36 WBC RBC Hgb Hct MCV MCH RDW Plt Count Gran % Lymph % (Auto) Gran # Lymph # (Auto) Seg Neutrophils % Band Neutrophils % Lymphocytes % Nucleated RBCs Platelet Estimate RBC Morphology Macrocytosis PT INR VBG Lactic Acid 13.6 H* 12.1 H* Sodium Potassium Chloride Carbon Dioxide Anion Gap Creatinine Glucose Calcium Phosphorus Magnesium Total Bilirubin Direct Bilirubin GGT AST ALT Alkaline Phosphatase Lactate Dehydrogenase Total Protein Albumin Globulin Albumin/Globulin Ratio Urine Opiates Screen Ur Oxycodone Screen Ethyl Alcohol 0.078 H 07/21/18 07/21/18 07/21/18 14:31 14:31 14:31 WBC 11.6 H RBC 2.73 L Hgb 9.1 L Hct 27.3 L MCV MCH RDW 15.4 H Plt Count 64 L Gran % 85.7 H Lymph % (Auto) 9.4 L Gran # 9.9 H Lymph # (Auto) 1.1 L Seg Neutrophils % Band Neutrophils % Lymphocytes % Nucleated RBCs Platelet Estimate RBC Morphology Macrocytosis PT 23.3 H INR 2.1 H VBG Lactic Acid Sodium 131 L Potassium Chloride 88 L Carbon Dioxide 21 L Anion Gap 22.0 H Creatinine Glucose 187 H Calcium 7.4 L Phosphorus Magnesium Total Bilirubin 3.6 H Direct Bilirubin GGT AST 374 H ALT 45 H Alkaline Phosphatase 240 H Lactate Dehydrogenase Total Protein Albumin 2.0 L Globulin 4.1 H Albumin/Globulin Ratio 0.5 L Urine Opiates Screen Ur Oxycodone Screen Ethyl Alcohol Meds: Medications Chlordiazepoxide HCl (Librium) 50 mg PO Q8HP PRN PRN Reason: Alcohol Withdrawal Last Admin: 07/22/18 00:32 Dose: 50 mg Documented by: Clonazepam (Klonopin) 1 mg PO BID [facility] Last Admin: 07/21/18 21:26 Dose: 1 mg Documented by: Famotidine (Pepcid) 20 mg PO BID [facility] Last Admin: 07/21/18 21:26 Dose: 20 mg Documented by: Folic Acid (Folic Acid) 1 mg PO DAILY [facility] Furosemide (Lasix) 40 mg PO DAILY [facility] Haloperidol Lactate (Haldol) 1 mg IV Q2HP PRN PRN Reason: Alcohol Withdrawal Hydromorphone HCl (Dilaudid) 0.5 mg IV Q2HP PRN PRN Reason: PAIN LEVEL > 6 Last Admin: 07/22/18 07:01 Dose: 0.5 mg Documented by: Albumin Human (Buminate) 12.5 gm in 50 mls @ 100 mls/hr IV TID [facility] Stop: 07/23/18 15:29 Last Infusion: 07/22/18 05:51 Dose: Infused Documented by: Piperacillin Sod/Tazobactam (Sod 3.375 gm/ Dextrose) 50 mls @ 100 mls/hr IV Q6H [facility]; Protocol Last Infusion: 07/22/18 05:39 Dose: Infused Documented by: Norepinephrine Bitartrate 16 (mg/ Sodium Chloride) 250 mls @ 9.38 mls/hr IV Q24H [facility]; Protocol Last Titration: 07/22/18 07:38 Dose: 30 mcg/min, 28.13 mls/hr Documented by: Sodium Chloride (Sodium Chloride 0.9%) 250 mls @ 20 mls/hr IV .[id number] [facility] Last Admin: 07/22/18 05:38 Dose: 20 mls/hr Documented by: Sodium Chloride (Sodium Chloride 0.9%) 250 mls @ 20 mls/hr IV .[id number] [facility] Stop: 07/22/18 19:14 Last Admin: 07/22/18 06:55 Dose: 20 mls/hr Documented by: Sodium Chloride (Sodium Chloride 0.9%) 250 mls @ 20 mls/hr IV .[id number] [facility] Stop: 07/22/18 19:59 Last Admin: 07/22/18 07:48 Dose: Not Given Documented by: Sodium Chloride (Sodium Chloride 0.9%) 250 mls @ 20 mls/hr IV .[id number] [facility] Last Admin: 07/22/18 08:09 Dose: Not Given Documented by: Vasopressin 20 unit/ Dextrose 100 mls @ 12 mls/hr IV Q8H [facility]; Protocol Last Admin: 07/22/18 08:05 Dose: 0.04 unit/min, 12 mls/hr Documented by: Iron Carb/Multivit/[place]/Folic Acid (Multivitamin W/Minerals) 1 tab PO DAILY [facility] Lidocaine (Lidoderm) 1 patch TOPICAL DAILY@1000 [facility] Lorazepam (Ativan) 0 mg IV Q4HP PRN; Protocol PRN Reason: Alcohol Withdrawal Last Admin: 07/22/18 07:21 Dose: 2 mg Documented by: Midodrine (Midodrine Hcl) 5 mg PO TID@0800,1200,1700 [facility] Buprenorphine Hcl 2 (Mg) 1 dose SL BID [facility] Last Admin: 07/21/18 21:27 Dose: Not Given Documented by: Prednisone (Prednisone) 40 mg PO [facility] Sodium Chloride (Saline Flush) 10 ml IV Q8 [facility] Last Admin: 07/22/18 05:38 Dose: 10 ml Documented by: Sodium Chloride (Saline Flush) 10 ml IV Q8 [facility] Last Admin: 07/22/18 05:38 Dose: 10 ml Documented by: Thiamine HCl (Vitamin B1) 100 mg PO QDAY [facility] Last Admin: 07/21/18 21:28 Dose: Not Given Documented by: Medical - PN: A/P - Time Spent With Patient Total time spent is greater than 50% in coordination of care (as documented) at patient's floor/unit and/or counseling patient: 15 - 24 minutes (1) Liver failure Status: Acute Assessment and plan: Discussed with patient and family that his prognosis is poor in light of continued decline and renal failure. They have elected to discontinue treatment and pursue comfort measures only. Current Visit: Yes Medical - PN: Qual - VTE Deep Vein Thrombosis/Pulmonary Embolism Present on Admission: No
[2018-07-22] MEDS ORDERED: LORazepam 2 MG/ML VIAL IV ONE (08:54)
[2018-07-22] MEDS ORDERED: MULTIVIT,THER IRON,CA,FA & MIN 1 TABLET PO SCH (09:00)
[2018-07-22] MEDS ORDERED: FOLIC ACID 1 MG TABLET PO SCH (09:00)
[2018-07-22] MEDS ORDERED: FUROSEMIDE 40 MG TABLET PO SCH (09:00)
[2018-07-22] MEDS ORDERED: SPIRONOLACTONE 25 MG TABLET PO SCH (09:00)
[2018-07-22] MEDS ORDERED: LORazepam 2 MG/ML VIAL IV PRN (09:01)
[2018-07-22] MEDS ORDERED: LACTOPEROXI/GLUC OXID/POT THIO 1 EACH GEL..EA. TOPICAL PRN (09:01)
[2018-07-22] MEDS ORDERED: ONDANSETRON 4 MG/2 ML VIAL IV PRN (09:01)
--- NOTE | 2018-07-22 09:29 | Death Note ---
Discharge Sum: Prov - Provider Patient information: Note initiated : 07/22/18 at 9:27 am Service Date, if different from initiated Date: [] Patient: Abrahan Benito 37 y/o M admitted on 07/21/18 for Weakness. Chief Complaint: [] Primary care physician: Tamika Romano Discharge Sum: Summary - Date and Time Date of admission: 07/21/18 20:05 Date of : 07/22/18 Time of : 09:14 - Summary Details: Mr. Benito is a 37 year old M who was diagnosed with acute hepatitis last fall. Outpatient workup included evaluation by [facility] transplant team. Patient had denied any alcohol use. However, further workup and biopsies that you [facility] revealed it to be alcohol related. When asking him about alcohol he says he has not had any since March, but when I stated there is alcohol showing up in his blood and then again asked in 1 of last time he had a drinks as well may be couple days ago. He only admits to drinking 3 times a week 2-4 mixed alcoholic drinks with rum. Denies any drug use. He came to the ER late last night because of abdominal pain found of a lot of ascites and was given a paracentesis which relieved the achy abdominal pain. The patient presented back to the ER with a sharp pain over the procedure site. He was found to have a large hematoma and was given some pain medications and discharge. His mom brought him back today because he was shaky sweaty weak. Per his mom he is progressed to look more pale of the past few months and more yellow. He has some chills from time to time with some nausea. Had a soft stool today no diarrhea. Denies chest pain, does have some shortness of breath because of abdominal pressure but otherwise respiratory status is well. His mentation is clear. 3/ worsening agitation and elevated CIWA score last night, improved with IV Ativan. Patient was noncompliant with some of the orders per nursing staff. Blood pressure dropping this morning's start on low-dose Levophed. Tachypneic last night, no change in chest x-ray, started on BiPAP with improvement. Respiratory compensation for metabolic acidosis. INR worsening despite 2 FFP and vitamin K yesterday. Per the patient's desire, his mother and father would be the ones to does make medical decisions if he was unable. Discussed case with Dr. Lindsay regarding any other intervention or any benefit to transferring. He stated at this point in his end-stage liver disease unresponsive to initial therapy that his prognosis extremely poor no benefit to transferring, hospice consult more than appropriate. Patient is on BiPAP at this time and difficult to obtain answers to questions was able to tell me that his mother and father would make medical decisions for him. Other review of systems unable to understand his response. Patient at 0914 hours today with family present. A: *Acute on chronic Liver failure: -MELDS-Na=25 & Child-[place]=C -Poor prognosis, High mortality rate -Not a transplant candidate secondary to alcohol use. Valerie Allison already talked to you [facility] transplant team *Etoh Hepatitis: *Cirrhosis, ETOH: with sequelae of low albumin/platelets/sodium, elevated bili/lactate *etoh abuse with W/D: *Hypotension after paracentesis of 1500cc early on 07/21: -responded initially to IVF but dropped again overnight and started on vasopressors *Hematoma, large: 2/2 paracentesis *Multiorgan dysfunction: *coagulopathy: 2/2 cirrhosis -s/p FFP and santos K w/o improvement *Anemia, acute blood loss: 2/2 above *Lactic acidosis: 2/2 hypotension and Liver failure *Hyponatremia: 2/2 liver failure *Guarded Prognosis: -[place] II score on admit 19/25% in ED -declining since admission P: -Multiple family discussions, patient made comfort car this morning. - Additional Data Attending physician: Ganesh Vargas
[2018-07-22] MEDS ORDERED: LIDOCAINE PATCH TOPICAL SCH (10:00)
[2018-07-22] MEDS ORDERED: 0.9 % SODIUM CHLORIDE 10 ML SYRINGE IV SCH (14:00)
== END 2018-07-22 09:14 | disposition expired | DRG 433 ==
LOC: ED 14:20 → ICU 20:05
PROVIDERS: ADMIT Internal Medicine; ATTEND Internal Medicine